=== PATIENT | female | born 1960 | race Caucasian/White ===

== ENCOUNTER 2016-08-09 05:52 | Emergency (ER) | payer SELFPAY ==
[2005-07-06 16:22] VITALS: BP 126/76
[~2016-08-09] VITALS: Ht 167.6 cm; Wt 93.2 kg
[~2016-08-09 05:52] MED LIST: ADVIL200 MG PO; BENADRYL25 M2 PO; CEFTIN 250250 MG/TAB PO; COZAAR100 MG PO; FLEXERIL 1010 MG/TAB PO; FLUTICASON0.05 MG/Ac NS; GENUVIA; GLUCOPHAGE500 MG/TAB PO; LISINOPRIL1 POW; LORTAB 5/500 501 TAB PO; MACROBID 1100 MG/CAP PO; METFORMIN500 MG PO; NAPROSYN500 MG PO; NEURONTIN100 MG/CAP PO; NEURONTIN300 MG/CAP PO; NO HOME MEDICATIONS; NORCO 325 MG-51 TAB PO; NORCO 325 MG-7.1 TAB PO; PERCOCET 325 MG1 TAB PO; PYRIDIUM200 M1 PO; TOPROL XL 25MG25 MG PO; TYLENOL 500MG500 MG PO; ZESTRIL 20MG TA20 MG PO; ZITHROMAX Z PA250 MG PO; ZOCOR 20MG20 MG PO; ZOFRAN 4MG T4 MG/TAB PO; [UNRECOGNIZED DRUG - OTHER]
[2016-08-09 06:03] VITALS: TEMP 97.9
[2016-08-09] MEDS ORDERED: PRILOSEC 20MG20 MG PO (06:12)
[2016-08-09 06:27] LABS: BASO # 0.1 (0.0-0.2); BASO % 1.8 % (0.0-2.0); EOS # 0.3 (0.0-0.7); EOS % 3.4 % (0-4.0); GRAN # 3.5 (1.4-6.5); GRAN % 48.1 % (42.2-75.2); HEMATOCRIT 38.8 % (37.0-47.0); HEMOGLOBIN 13.5 g/dl (12.5-16.0); LYMPH # 2.7 (1.2-3.4); MEAN CELL VOLUME 86 fl (80.0-100.0); MEAN CORPUSCULAR HEMOGLOBIN 30 pg (27.0-31.0); MEAN CORPUSCULAR HGB CONC 35 g/dl (33.0-37.0); MEAN PLATELET VOLUME 9.1 fl (7.4-10.4); MONO # 0.8 (0.1-0.6); MONO % 10.2 % (1.7-9.3); PLATELET COUNT 365 K/mm3 (130-400); RED BLOOD COUNT 4.53 M/mm3 (4.10-5.30); REDCELL DISTRIBUTION WIDTH-CV 11.9 % (11.5-14.5); WHITE BLOOD COUNT 7.4 K/mm3 (4.8-10.8)
[2016-08-09 06:40] LABS: ADJUSTED CALCIUM 8.8 mg/dL (8.4-10.2); ALANINE AMINOTRANSFERASE 31 U/L (9-52); ALBUMIN 4.1 gm/dL (3.5-5.0); ALKALINE PHOSPHATASE 76 U/L (50-136); ANION GAP 14 mmol/L (7-16); BILIRUBIN,TOTAL 0.8 mg/dL (0.0-1.0); BLOOD UREA NITROGEN 19 mg/dL (7-17); CALCIUM 8.9 mg/dL (8.4-10.2); CARBON DIOXIDE 22 mmol/L (22-30); CHLORIDE 103 mmol/L (98-107); CREATININE, serum 0.73 mg/dL (0.52-1.25); GLUCOSE 167 mg/dL (74-106); LIPASE 198 U/L (23-300); POTASSIUM 3.9 mmol/L (3.4-5.0); SODIUM 139 mmol/L (137-145); TOTAL PROTEIN 7.3 gm/dL (6.4-8.2)
[2016-08-09 06:51] LABS: B-TYPE NATRIURETIC PEPTIDE 143 pg/mL (0-125)
[2016-08-09 06:56] LABS: TROPONIN-I < 0.012 ng/mL (0.000-0.034)
[2016-08-09] MEDS ORDERED: GLUMETZA500 MG PO (08:20)
[2016-08-09] MEDS ORDERED: NORVASC2.5 MG PO (08:22)
[2016-08-09] MEDS ORDERED: ACTOS 15MG TAB15 MG PO (08:22)
[2016-08-09 09:31] VITALS: BP 126/86; PULSE 76
== END 2016-08-09 09:36 | disposition home or self-care (01) ==
LOC: COL.ER 05:52
PROVIDERS: Emergency Medicine
DX: R07.9 Chest pain, unspecified (principal); R11.0 Nausea; R10.812 Left upper quadrant abdominal tenderness; I10 Essential (primary) hypertension; E11.9 Type 2 diabetes mellitus without complications; Z87.891 Personal history of nicotine dependence
CPT/HCPCS: J2405

== ENCOUNTER 2017-09-22 14:11 | Outpatient (RCR) | payer OTHER ==
[~2017-09-22 14:11] MED LIST changes: +ACTOS 15MG TAB15 MG PO; +GLUMETZA500 MG PO; +NORVASC2.5 MG PO; +PRILOSEC 20MG20 MG PO
== END 2017-12-21 | disposition home or self-care (01) ==
LOC: WSOH
DX: M25.532 Pain in left wrist (principal); S20.212A Contusion of left front wall of thorax, initial encounter; W01.0XXA Fall on same level from slipping, tripping and stumbling without subsequent striking against object, initial encounter; Y93.01 Activity, walking, marching and hiking; Y92.59 Other trade areas as the place of occurrence of the external cause; Y99.0 Civilian activity done for income or pay; Z79.84 Long term (current) use of oral hypoglycemic drugs; Z79.1 Long term (current) use of non-steroidal anti-inflammatories (NSAID); Z79.899 Other long term (current) drug therapy; Z87.891 Personal history of nicotine dependence
CPT/HCPCS: 24091; A6549

== ENCOUNTER 2017-12-29 11:51 | Inpatient (IN) | payer SELFPAY ==
[2017-12-29] VITALS (517 sets, daily range): BP systolic 127–164; BP diastolic 88–104; PULSE 108–111; TEMP 97.8–98.1; O2SAT 89–100
[~2017-12-29] VITALS: Ht 167.6 cm; Wt 91.8 kg
[2017-12-29 12:24] LABS: BASO # 0.1 (0.0-0.2); BASO % 1.1 % (0.0-2.0); EOS # 0.2 (0.0-0.7); EOS % 2.2 % (0-4.0); GRAN # 5.3 (1.4-6.5); GRAN % 54.2 % (42.2-75.2); HEMATOCRIT 43.5 % (37.0-47.0); HEMOGLOBIN 15.5 g/dl (12.5-16.0); LYMPH # 3.3 (1.2-3.4); LYMPH % 33.5 % (20.0-51.0); MEAN CELL VOLUME 85 fl (80.0-100.0); MEAN CORPUSCULAR HEMOGLOBIN 30 pg (27.0-31.0); MEAN CORPUSCULAR HGB CONC 36 g/dl (33.0-37.0); MEAN PLATELET VOLUME 9.3 fl (7.4-10.4); MONO # 0.9 (0.1-0.6); MONO % 8.7 % (1.7-9.3); PLATELET COUNT 376 K/mm3 (130-400); REDCELL DISTRIBUTION WIDTH-CV 11.8 % (11.5-14.5)
[2017-12-29 12:36] LABS: PROTHROMBIN TIME 10.8 SECONDS (9.7-12.8)
[2017-12-29 12:42] LABS: ALANINE AMINOTRANSFERASE 36 U/L (9-52); ALBUMIN 4.4 gm/dL (3.5-5.0); ALKALINE PHOSPHATASE 74 U/L (50-136); ANION GAP 11 mmol/L (7-16); AST,SGOT 24 U/L (15-37); BILIRUBIN,TOTAL 0.6 mg/dL (0.0-1.0); BLOOD UREA NITROGEN 21 mg/dL (7-17); CALCIUM 9.1 mg/dL (8.4-10.2); CARBON DIOXIDE 22 mmol/L (22-30); CHLORIDE 106 mmol/L (98-107); CREATININE, serum 0.81 mg/dL (0.52-1.25); GLUCOSE 213 mg/dL (74-106); POTASSIUM 4.5 mmol/L (3.4-5.0); SODIUM 139 mmol/L (137-145); TOTAL PROTEIN 7.7 gm/dL (6.4-8.2)
[2017-12-29 12:56] LABS: TROPONIN-I < 0.012 ng/mL (0.000-0.034)
[2017-12-29 14:16] LABS: MAGNESIUM 1.6 mg/dL (1.6-2.3)
[2017-12-29 14:48] LABS: TSH w REFLEX 1.6 uIU/mL (0.465-4.680)
[2017-12-29 15:01] LABS: COLLECTION METHOD CLEAN CATCH
[2017-12-29 15:13] LABS: MUCOUS Present /lpf; PH 5 (5-8); SQUAMOUS EPITHELIAL None Seen /hpf; URINE APPEARANCE Clear; URINE BACTERIA Moderate /hpf; URINE BILIRUBIN Negative (NEGATIVE); URINE BLOOD Negative (NEGATIVE); URINE COLOR Yellow; URINE GLUCOSE 1+ (NEGATIVE); URINE KETONE Trace (NEGATIVE); URINE LEUKOCYTE ESTERASE Negative (NEGATIVE); URINE NITRATE Negative (NEGATIVE); URINE PROTEIN(semi-quant) Negative (NEGATIVE); URINE RBC 0-2 /hpf; URINE UROBILINOGEN Negative (NEGATIVE)
[2017-12-29 16:41] LABS: MAGNESIUM 1.6 mg/dL (1.6-2.3)
[2017-12-29 16:59] LABS: TROPONIN-I < 0.012 ng/mL (0.000-0.034)
[2017-12-30] VITALS (681 sets, daily range): BP systolic 125–149; BP diastolic 64–88; PULSE 80–98; TEMP 98–98.8; O2SAT 89–98
[2017-12-30 05:37] LABS: BASO # 0.1 (0.0-0.2); BASO % 1.2 % (0.0-2.0); EOS # 0.2 (0.0-0.7); EOS % 2.5 % (0-4.0); GRAN # 5.2 (1.4-6.5); GRAN % 59.4 % (42.2-75.2); HEMATOCRIT 39.9 % (37.0-47.0); LYMPH # 2.6 (1.2-3.4); LYMPH % 29.5 % (20.0-51.0); MEAN CELL VOLUME 86 fl (80.0-100.0); MEAN CORPUSCULAR HEMOGLOBIN 30 pg (27.0-31.0); MEAN CORPUSCULAR HGB CONC 35 g/dl (33.0-37.0); MONO # 0.6 (0.1-0.6); MONO % 7.2 % (1.7-9.3); PLATELET COUNT 354 K/mm3 (130-400); RED BLOOD COUNT 4.62 M/mm3 (4.10-5.30); REDCELL DISTRIBUTION WIDTH-CV 11.9 % (11.5-14.5)
[2017-12-30 05:47] LABS: ANION GAP 7 mmol/L (7-16); BLOOD UREA NITROGEN 14 mg/dL (7-17); CALCIUM 8.5 mg/dL (8.4-10.2); CARBON DIOXIDE 24 mmol/L (22-30); CHLORIDE 106 mmol/L (98-107); CHOLESTEROL 203 mg/dL (120-200); GLUCOSE 219 mg/dL (74-106); MAGNESIUM 1.9 mg/dL (1.6-2.3); POTASSIUM 4.2 mmol/L (3.4-5.0); SODIUM 137 mmol/L (137-145)
[2017-12-30 06:07] LABS: TRIGLYCERIDE 639 mg/dL; TROPONIN-I < 0.012 ng/mL (0.000-0.034)
[2017-12-31 04:00] VITALS: BP 127/71; PULSE 80
[2017-12-31 07:17] VITALS: BP 134/89; PULSE 77; TEMP 98.5
[2017-12-31 09:47] LABS: CALCIUM 8.8 mg/dL (8.4-10.2); CREATININE, serum 0.75 mg/dL (0.52-1.25); MAGNESIUM 1.7 mg/dL (1.6-2.3); POTASSIUM 4.4 mmol/L (3.4-5.0)
[2017-12-31 10:56] VITALS: BP 153/92; PULSE 81; TEMP 98
[2017-12-31 15:27] VITALS: BP 143/93; PULSE 97; TEMP 98.1
[2017-12-31 21:02] VITALS: BP 140/86; PULSE 100; TEMP 97.6
[2018-01-01] VITALS (11 sets, daily range): BP systolic 126–169; BP diastolic 83–103; PULSE 87–124; TEMP 97.8–98.6
[2018-01-02 04:50] VITALS: BP 138/83; PULSE 78; TEMP 97.6
[2018-01-02 06:33] LABS: CALCIUM 8.9 mg/dL (8.4-10.2); CREATININE, serum 0.64 mg/dL (0.52-1.25); MAGNESIUM 1.7 mg/dL (1.6-2.3); POTASSIUM 4.1 mmol/L (3.4-5.0)
[2018-01-02 08:25] VITALS: BP 142/83; PULSE 97; TEMP 98.2
[2018-01-02] MEDS ORDERED: ELIQUIS 5MG PO (10:07)
[2018-01-02] MEDS ORDERED: TAMBOCOR50 MG PO (10:07)
[2018-01-02] MEDS ORDERED: LIPITOR 40MG TA40 MG PO (10:08)
[2018-01-02] MEDS ORDERED: FLONASE NASAL S16 GM NS (10:09)
[2018-01-02] MEDS ORDERED: COZAAR 50MG50 MG/TAB PO (10:09)
== END 2018-01-02 12:25 | disposition home or self-care (01) | DRG 310 ==
LOC: COL.ER 11:51 → ICU 12:18 → COL.ER 12:18 → ICU 12:19 → MEDICAL 12-30 12:18
PROVIDERS: Emergency Medicine; Family Medicine; Hospitalist; Physician Assistant
DX: I48.92 Unspecified atrial flutter (principal); Z23 Encounter for immunization; E83.42 Hypomagnesemia; I10 Essential (primary) hypertension; K21.9 Gastro-esophageal reflux disease without esophagitis; E11.9 Type 2 diabetes mellitus without complications; M79.7 Fibromyalgia; E78.5 Hyperlipidemia, unspecified; T78.49XA Other allergy, initial encounter; R30.0 Dysuria; G47.33 Obstructive sleep apnea (adult) (pediatric); K58.9 Irritable bowel syndrome, unspecified; Z91.14 Patient's other noncompliance with medication regimen; H53.9 Unspecified visual disturbance
CPT/HCPCS: 99222-AI; 99232-AI; 99233-AI; 99239; A9502; G0378; J0360; J1650; J1815; J1885; J2405; J2704; J2785; J3475

== ENCOUNTER → 2018-01-03 | Outpatient (CLI) | payer SELFPAY ==
[~2018-01-03] MED LIST changes: +COZAAR 50MG50 MG/TAB PO; +ELIQUIS 5MG PO; +FLONASE NASAL S16 GM NS; +LIPITOR 40MG TA40 MG PO; +TAMBOCOR50 MG PO
== END ==
LOC: COL.PUL 14:24
DX: G47.30 Sleep apnea, unspecified (principal)

== ENCOUNTER 2018-01-07 22:23 | Emergency (ER) | payer SELFPAY ==
[2005-07-06 16:22] VITALS: BP 126/76
[~2018-01-07] VITALS: Ht 167.6 cm; Wt 89.1 kg
[2018-01-07 22:27] VITALS: TEMP 97.2
[2018-01-07 22:58] LABS: HEMATOCRIT 43.3 % (37.0-47.0); HEMOGLOBIN 15.2 g/dl (12.5-16.0); MEAN CELL VOLUME 85 fl (80.0-100.0); MEAN CORPUSCULAR HEMOGLOBIN 30 pg (27.0-31.0); MEAN CORPUSCULAR HGB CONC 35 g/dl (33.0-37.0); MEAN PLATELET VOLUME 9.9 fl (7.4-10.4); PLATELET COUNT 410 K/mm3 (130-400); RED BLOOD COUNT 5.07 M/mm3 (4.10-5.30)
[2018-01-07 23:04] LABS: ALANINE AMINOTRANSFERASE 80 U/L (9-52); ALBUMIN 4.2 gm/dL (3.5-5.0); ALKALINE PHOSPHATASE 81 U/L (50-136); ANION GAP 10 mmol/L (7-16); AST,SGOT 24 U/L (15-37); BILIRUBIN,TOTAL 0.5 mg/dL (0.0-1.0); BLOOD UREA NITROGEN 17 mg/dL (7-17); CALCIUM 9.1 mg/dL (8.4-10.2); CARBON DIOXIDE 24 mmol/L (22-30); CHLORIDE 105 mmol/L (98-107); CREATININE, serum 0.77 mg/dL (0.52-1.25); GLUCOSE 256 mg/dL (74-106); POTASSIUM 3.6 mmol/L (3.4-5.0); SODIUM 139 mmol/L (137-145); TOTAL PROTEIN 7.1 gm/dL (6.4-8.2)
[2018-01-07 23:20] LABS: TROPONIN-I < 0.012 ng/mL (0.000-0.034)
[2018-01-08 00:52] VITALS: BP 132/78; PULSE 84
== END 2018-01-08 00:54 | disposition home or self-care (01) ==
LOC: COL.ER 22:23
PROVIDERS: Emergency Medicine
DX: R00.2 Palpitations (principal); R00.0 Tachycardia, unspecified; E11.9 Type 2 diabetes mellitus without complications; I10 Essential (primary) hypertension; E78.5 Hyperlipidemia, unspecified; K21.9 Gastro-esophageal reflux disease without esophagitis; Z79.01 Long term (current) use of anticoagulants; Z79.51 Long term (current) use of inhaled steroids; Z79.84 Long term (current) use of oral hypoglycemic drugs
CPT/HCPCS: J7030

== ENCOUNTER 2018-06-01 11:47 | Emergency (ER) | payer SELFPAY ==
[2005-07-06 16:22] VITALS: BP 126/76
[~2018-06-01] VITALS: Ht 167.6 cm; Wt 92.3 kg
[2018-06-01 12:00] VITALS: TEMP 97.7
[2018-06-01 12:48] LABS: BASO # 0.1 (0.0-0.2); EOS # 0.2 (0.0-0.7); EOS % 2.2 % (0-4.0); GRAN # 4.7 (1.4-6.5); HEMATOCRIT 43.2 % (37.0-47.0); HEMOGLOBIN 15.2 g/dl (12.5-16.0); LYMPH # 2.9 (1.2-3.4); LYMPH % 33.1 % (20.0-51.0); MEAN CELL VOLUME 84 fl (80.0-100.0); MEAN CORPUSCULAR HEMOGLOBIN 30 pg (27.0-31.0); MEAN CORPUSCULAR HGB CONC 35 g/dl (33.0-37.0); MEAN PLATELET VOLUME 9.3 fl (7.4-10.4); MONO # 0.8 (0.1-0.6); MONO % 9.4 % (1.7-9.3); PLATELET COUNT 358 K/mm3 (130-400); RED BLOOD COUNT 5.12 M/mm3 (4.10-5.30); REDCELL DISTRIBUTION WIDTH-CV 11.9 % (11.5-14.5)
[2018-06-01 13:00] LABS: ALANINE AMINOTRANSFERASE 27 U/L (9-52); ALBUMIN 4.3 gm/dL (3.5-5.0); ALKALINE PHOSPHATASE 107 U/L (50-136); ANION GAP 13 mmol/L (7-16); AST,SGOT 20 U/L (15-37); BILIRUBIN,TOTAL 0.7 mg/dL (0.0-1.0); BLOOD UREA NITROGEN 18 mg/dL (7-17); C-REACTIVE PROTEIN 0.6 mg/dL (0.0-0.9); CALCIUM 9.7 mg/dL (8.4-10.2); CARBON DIOXIDE 24 mmol/L (22-30); CHLORIDE 102 mmol/L (98-107); CREATININE, serum 0.73 (0.52-1.25); GLUCOSE 237 mg/dL (74-106); POTASSIUM 4.4 mmol/L (3.4-5.0); SODIUM 139 mmol/L (137-145); TOTAL PROTEIN 7.4 gm/dL (6.4-8.2)
[2018-06-01 13:11] LABS: TROPONIN-I < 0.012 ng/mL (0.000-0.035)
[2018-06-01] MEDS ORDERED: LIDODERM 5% PATC1 EA TP (16:35)
[2018-06-01 16:44] VITALS: BP 161/98; PULSE 76
== END 2018-06-01 16:58 | disposition home or self-care (01) ==
LOC: COL.ER 11:47
PROVIDERS: Physician Assistant
DX: M79.622 Pain in left upper arm (principal); E11.9 Type 2 diabetes mellitus without complications; I10 Essential (primary) hypertension; M79.7 Fibromyalgia; E78.5 Hyperlipidemia, unspecified; Z79.01 Long term (current) use of anticoagulants; Z79.51 Long term (current) use of inhaled steroids; Z79.84 Long term (current) use of oral hypoglycemic drugs; Z87.891 Personal history of nicotine dependence
CPT/HCPCS: J2270; J2405

== ENCOUNTER → 2018-10-11 | Outpatient (CLI) | payer OTHER ==
[~2018-10-11] MED LIST changes: +LIDODERM 5% PATC1 EA TP
== END ==
LOC: COL.RAD 09:34
DX: Z02.71 Encounter for disability determination (principal); S22.080A Wedge compression fracture of T11-T12 vertebra, initial encounter for closed fracture; M47.814 Spondylosis without myelopathy or radiculopathy, thoracic region; M17.12 Unilateral primary osteoarthritis, left knee

== ENCOUNTER 2019-04-21 21:07 | Emergency (ER) | payer SELFPAY ==
[2005-07-06 16:22] VITALS: BP 126/76
[~2019-04-21] VITALS: Ht 167.6 cm; Wt 95.0 kg
[2019-04-21 21:11] VITALS: TEMP 98.1
[2019-04-21 21:27] LABS: BASO # 0.1 (0.0-0.2); BASO % 1.2 % (0.0-2.0); EOS # 0.3 (0.0-0.7); EOS % 2.9 % (0-4.0); GRAN # 3.9 (1.4-6.5); GRAN % 39.8 % (42.2-75.2); HEMATOCRIT 42.3 % (37.0-47.0); HEMOGLOBIN 14.2 g/dl (12.5-16.0); LYMPH # 4.4 (1.2-3.4); LYMPH % 45.3 % (20.0-51.0); MEAN CELL VOLUME 89 fl (80.0-100.0); MEAN CORPUSCULAR HEMOGLOBIN 30 pg (27.0-31.0); MEAN CORPUSCULAR HGB CONC 34 g/dl (33.0-37.0); MEAN PLATELET VOLUME 9.5 fl (7.4-10.4); MONO % 10.5 % (1.7-9.3); PLATELET COUNT 376 K/mm3 (130-400); RED BLOOD COUNT 4.76 M/mm3 (4.10-5.30); REDCELL DISTRIBUTION WIDTH-CV 12.4 % (11.5-14.5)
[2019-04-21 21:32] LABS: PROTHROMBIN TIME 11.2 SECONDS (9.7-12.8)
[2019-04-21 21:36] LABS: ALANINE AMINOTRANSFERASE 28 U/L (9-52); ALBUMIN 4.2 gm/dL (3.5-5.0); ALKALINE PHOSPHATASE 92 U/L (50-136); ANION GAP 10 mmol/L (7-16); AST,SGOT 21 U/L (15-37); BILIRUBIN,TOTAL 0.6 mg/dL (0.0-1.0); BLOOD UREA NITROGEN 23 mg/dL (7-17); CALCIUM 8.8 mg/dL (8.4-10.2); CARBON DIOXIDE 31 mmol/L (22-30); CHLORIDE 100 mmol/L (98-107); CREATININE, serum 0.77 (0.52-1.25); GLUCOSE 221 mg/dL (74-106); LIPASE 194 U/L (23-300); POTASSIUM 4.2 mmol/L (3.4-5.0); SODIUM 141 mmol/L (137-145); TOTAL PROTEIN 7.2 gm/dL (6.4-8.2)
[2019-04-21 22:10] LABS: TROPONIN-I < 0.012 ng/mL (0.000-0.035)
[2019-04-22 02:08] VITALS: BP 118/64; PULSE 79
== END 2019-04-22 02:14 | disposition home or self-care (01) ==
LOC: COL.ER 21:07
PROVIDERS: Emergency Medicine
DX: R07.89 Other chest pain (principal); I10 Essential (primary) hypertension; E11.9 Type 2 diabetes mellitus without complications; Z95.9 Presence of cardiac and vascular implant and graft, unspecified; Z90.710 Acquired absence of both cervix and uterus; Z90.89 Acquired absence of other organs; Z79.51 Long term (current) use of inhaled steroids; Z79.01 Long term (current) use of anticoagulants; Z79.84 Long term (current) use of oral hypoglycemic drugs
CPT/HCPCS: J7030; Q9967

== ENCOUNTER → 2019-05-03 | Outpatient (CLI) | payer SELFPAY ==
--- NOTE | 2019-04-30 09:05 | NUR ---
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
[~2019-05-03] VITALS: Ht 167.6 cm; Wt 95.6 kg
[2019-05-03 11:04] VITALS: BP 155/101; PULSE 92
[2019-05-03 12:26] VITALS: BP 165/95; PULSE 83
[2019-05-03 12:32] VITALS: BP 160/87; PULSE 102
[2019-05-03 12:33] VITALS: BP 154/86; PULSE 109
[2019-05-03 12:34] VITALS: BP 161/86; PULSE 107
== END ==
LOC: COL.CARD 10:33
DX: I20.9 Angina pectoris, unspecified (principal)
CPT/HCPCS: A9500

== ENCOUNTER 2020-01-17 16:00 | Emergency (ER) | payer SELFPAY ==
[2005-07-06 16:22] VITALS: BP 126/76
[~2020-01-17] VITALS: Ht 165.1 cm; Wt 96.8 kg
[2020-01-17] MEDS ORDERED: GLUCOTROL 5M5 MG/TAB PO (17:01)
[2020-01-17] MEDS ORDERED: NATURAL MAGNES200 MG PO (17:02)
[2020-01-17] MEDS ORDERED: NEURONTIN300 MG/CAP PO (17:02)
[2020-01-17] MEDS ORDERED: IBU800 M1 PO (17:03)
[2020-01-17 18:00] VITALS: BP 158/89; PULSE 73; TEMP 97.9
== END 2020-01-17 18:04 | disposition home or self-care (01) ==
LOC: COL.ER 16:00
DX: I80.9 Phlebitis and thrombophlebitis of unspecified site (principal); F17.200 Nicotine dependence, unspecified, uncomplicated; Z90.710 Acquired absence of both cervix and uterus; Z90.49 Acquired absence of other specified parts of digestive tract; Z86.718 Personal history of other venous thrombosis and embolism; Z95.9 Presence of cardiac and vascular implant and graft, unspecified; Z88.0 Allergy status to penicillin; Z88.2 Allergy status to sulfonamides

== ENCOUNTER 2020-04-15 15:11 | Inpatient (IN) | payer SELFPAY ==
[2005-07-06 16:22] VITALS: BP 126/76
[~2020-04-15] VITALS: Ht 167.6 cm; Wt 98.0 kg
[2020-04-15] VITALS (241 sets, daily range): BP systolic 148–165; BP diastolic 85–100; PULSE 55–98; TEMP 98.5; O2SAT 90–100
[~2020-04-15 15:11] MED LIST changes: +GLUCOTROL 5M5 MG/TAB PO; +GLUMETZA1000 MG PO; -GLUMETZA500 MG PO; +IBU800 M1 PO; +NATURAL MAGNES200 MG PO
[2020-04-15] MEDS ORDERED: LOPRESSOR100 MG PO (15:25)
[2020-04-15] MEDS ORDERED: TAMBOCOR 1100 MG/TAB PO (15:26)
[2020-04-15 15:53] LABS: BASO # 0.1 (0.0-0.2); BASO % 1.3 % (0.0-2.0); EOS # 0.4 (0.0-0.7); EOS % 3.8 % (0-4.0); GRAN # 5.4 (1.4-6.5); GRAN % 55.4 % (42.2-75.2); HEMATOCRIT 45.1 % (37.0-47.0); HEMOGLOBIN 15.1 g/dl (12.5-16.0); LYMPH # 3.1 (1.2-3.4); LYMPH % 32.1 % (20.0-51.0); MEAN CELL VOLUME 90 fl (80.0-100.0); MEAN CORPUSCULAR HEMOGLOBIN 30 pg (27.0-31.0); MEAN CORPUSCULAR HGB CONC 34 g/dl (33.0-37.0); MONO # 0.7 (0.1-0.6); MONO % 7.2 % (1.7-9.3); PLATELET COUNT 309 K/mm3 (130-400); REDCELL DISTRIBUTION WIDTH-CV 12.1 % (11.5-14.5)
[2020-04-15 15:59] LABS: ALANINE AMINOTRANSFERASE 32 U/L (4-34); ALBUMIN 4.5 gm/dL (3.5-5.0); ALKALINE PHOSPHATASE 84 U/L (50-136); ANION GAP 14 mmol/L (7-16); AST,SGOT 32 U/L (15-37); BILIRUBIN,TOTAL 0.8 mg/dL (0.0-1.0); BLOOD UREA NITROGEN 17 mg/dL (7-17); CALCIUM 9.2 mg/dL (8.4-10.2); CARBON DIOXIDE 22 mmol/L (22-30); CHLORIDE 103 mmol/L (98-107); CREATININE, serum 0.83 (0.52-1.25); GLUCOSE 206 mg/dL (74-106); MAGNESIUM 1.5 mg/dL (1.6-2.3); POTASSIUM 4.4 mmol/L (3.4-5.0); SODIUM 139 mmol/L (137-145); TOTAL PROTEIN 7.5 gm/dL (6.4-8.2)
[2020-04-15 16:13] LABS: TROPONIN-I < 0.012 ng/mL (0.000-0.035)
[2020-04-15 23:24] LABS: COLLECTION METHOD CLEAN CATCH
[2020-04-15 23:34] LABS: MUCOUS Present /lpf; PH 5 (5-8); SQUAMOUS EPITHELIAL 0-2 /hpf; URINE APPEARANCE Hazy; URINE BACTERIA None Seen /hpf; URINE BILIRUBIN Negative (NEGATIVE); URINE BLOOD Negative (NEGATIVE); URINE COLOR Yellow; URINE GLUCOSE Negative (NEGATIVE); URINE KETONE Negative (NEGATIVE); URINE LEUKOCYTE ESTERASE Trace (NEGATIVE); URINE NITRATE Negative (NEGATIVE); URINE PROTEIN(semi-quant) Negative (NEGATIVE); URINE RBC 0-2 /hpf; URINE UROBILINOGEN Negative (NEGATIVE)
[2020-04-16] VITALS (717 sets, daily range): BP systolic 121–199; BP diastolic 62–99; PULSE 55–79; TEMP 98–98.8; O2SAT 74–100
[2020-04-16 05:55] LABS: BASO # 0.1 (0.0-0.2); BASO % 1.3 % (0.0-2.0); EOS # 0.4 (0.0-0.7); EOS % 4.6 % (0-4.0); GRAN # 2.6 (1.4-6.5); GRAN % 34.5 % (42.2-75.2); HEMATOCRIT 36.9 % (37.0-47.0); HEMOGLOBIN 12.3 g/dl (12.5-16.0); LYMPH # 3.7 (1.2-3.4); LYMPH % 49.2 % (20.0-51.0); MEAN CELL VOLUME 89 fl (80.0-100.0); MEAN CORPUSCULAR HEMOGLOBIN 29 pg (27.0-31.0); MEAN CORPUSCULAR HGB CONC 33 g/dl (33.0-37.0); MEAN PLATELET VOLUME 9.4 fl (7.4-10.4); MONO # 0.8 (0.1-0.6); MONO % 10.1 % (1.7-9.3); PLATELET COUNT 321 K/mm3 (130-400); RED BLOOD COUNT 4.17 M/mm3 (4.10-5.30); REDCELL DISTRIBUTION WIDTH-CV 12.3 % (11.5-14.5)
[2020-04-16 06:05] LABS: CALCIUM 8.4 mg/dL (8.4-10.2); CREATININE, serum 0.8 (0.52-1.25); POTASSIUM 4.2 mmol/L (3.4-5.0)
[2020-04-17 00:01] VITALS: BP 163/86; PULSE 70; TEMP 97.8
[2020-04-17 04:12] VITALS: BP 146/66; PULSE 67; TEMP 98.1
[2020-04-17 07:13] VITALS: BP 184/88; PULSE 66; TEMP 98
[2020-04-17 07:16] VITALS: BP 149/69
[2020-04-17 07:53] LABS: HEMOGLOBIN 12.3 g/dl (12.5-16.0); MEAN CELL VOLUME 90 fl (80.0-100.0); MEAN CORPUSCULAR HEMOGLOBIN 30 pg (27.0-31.0); MEAN CORPUSCULAR HGB CONC 34 g/dl (33.0-37.0); MEAN PLATELET VOLUME 10.2 fl (7.4-10.4); PLATELET COUNT 294 K/mm3 (130-400); REDCELL DISTRIBUTION WIDTH-CV 11.9 % (11.5-14.5)
[2020-04-17 07:55] LABS: HEMATOCRIT 36.7 % (37.0-47.0)
[2020-04-17 08:02] LABS: CALCIUM 8.4 mg/dL (8.4-10.2); CREATININE, serum 0.66 (0.52-1.25); MAGNESIUM 1.7 mg/dL (1.6-2.3)
[2020-04-17] MEDS ORDERED: FLONASE NASAL S16 GM NS (09:35)
== END 2020-04-17 11:45 | disposition home or self-care (01) | DRG 310 ==
LOC: COL.ER 15:11 → ICU 16:44 → MEDICAL 04-16 17:15
PROVIDERS: Emergency Medicine; Nurse Practitioner Family; Physician Assistant; ADMIT Hospitalist
DX: I48.91 Unspecified atrial fibrillation (principal); E78.5 Hyperlipidemia, unspecified; M79.7 Fibromyalgia; E11.42 Type 2 diabetes mellitus with diabetic polyneuropathy; K21.9 Gastro-esophageal reflux disease without esophagitis; K58.9 Irritable bowel syndrome, unspecified; Z20.828 Contact with and (suspected) exposure to other viral communicable diseases; E83.42 Hypomagnesemia; J30.2 Other seasonal allergic rhinitis; R68.84 Jaw pain; I47.1 Supraventricular tachycardia; Z79.84 Long term (current) use of oral hypoglycemic drugs; Z87.891 Personal history of nicotine dependence; Z90.710 Acquired absence of both cervix and uterus; Z90.49 Acquired absence of other specified parts of digestive tract
CPT/HCPCS: 99222-AI; 99232-AI; J1650; J1815; J3475; J7030

== ENCOUNTER → 2021-05-06 | Outpatient (CLI) | payer SELFPAY ==
[~2021-05-06] MED LIST changes: +LOPRESSOR100 MG PO; +TAMBOCOR 1100 MG/TAB PO
== END ==
LOC: COL.RAD 10:11
DX: R51.9 Headache, unspecified (principal); R11.0 Nausea; R26.89 Other abnormalities of gait and mobility; R47.81 Slurred speech
CPT/HCPCS: A9575

== ENCOUNTER → 2021-06-04 | Outpatient (CLI) | payer SELFPAY ==
[~2021-06-04] VITALS: Ht 167.6 cm; Wt 95.3 kg
[~2021-06-04] MED LIST changes: +ASPIRIN E.C. 8181 MG PO; +INSULIN N (N100 U/ML SQ; +NORVASC 5MG5 MG/TAB PO
[2021-06-04 10:40] VITALS: BP 171/89; PULSE 82; TEMP 98
[2021-06-04 12:28] VITALS: BP 118/80; PULSE 83
[2021-06-04 12:31] VITALS: BP 181/107; PULSE 105
[2021-06-04 12:32] VITALS: BP 180/92; PULSE 95
[2021-06-04 12:33] VITALS: BP 175/99; PULSE 93
== END ==
LOC: COL.CARD 09:59
DX: I47.1 Supraventricular tachycardia (principal); I25.10 Atherosclerotic heart disease of native coronary artery without angina pectoris
CPT/HCPCS: A9500; J2785

== ENCOUNTER 2022-05-06 12:17 | Outpatient (CLI) | payer MEDICAID ==
[2005-07-06 16:22] VITALS: BP 126/76
[~2022-05-06] VITALS: Ht 167.7 cm; Wt 89.0 kg
[~2022-05-06 12:17] MED LIST changes: +ANTIVERT 25MG25 MG PO; +ASPIRIN 32325 MG/TAB PO; +GLUCOPHAGE1000 MG PO; +MAG-OX 400400 MG/TAB PO; +NITROSTAT0.4 MG/TAB SL; +NORVASC 10MG10 MG PO; +PLAVIX 75MG TAB75 MG PO; +PRIL40 PO
[2022-05-06 12:39] VITALS: BP 135/81; PULSE 69; TEMP 97.8
[2022-05-06 12:40] VITALS: BP 135/81; PULSE 69; TEMP 97.8
[2022-05-06] MEDS ORDERED: LEVEMIR FLEX100 U/ML SQ (12:45)
[2022-05-06] MEDS ORDERED: B-121000 MCG PO (12:48)
[2022-05-06] MEDS ORDERED: ALPHA LIPOIC A200 M2 PO (12:49)
--- NOTE | 2022-05-06 14:58 | NUR ---
PROCEDURE COMPLETED, PT HAS 2X2 DRESSING WITH PAPER TAPE OVER INCISION, CLEAN AND DRY. UP IN ROOM DRESSED, REVIEWED DISCHARGE INST. ON FOLLOWUP APPT, ALSO CARE OF SITE REVIEWED WITH PT, PT THEN DISCHARGED AMB. TO LOBBY
== END 2022-05-06 15:06 | disposition home or self-care (01) ==
LOC: COL.CAR 12:17
DX: I48.92 Unspecified atrial flutter (principal); G45.9 Transient cerebral ischemic attack, unspecified
CPT/HCPCS: 27886; C1764